=== PATIENT | female | born 1990 | race Caucasian/White ===

== ENCOUNTER 2016-06-29 13:58 | Inpatient (IN) | payer MEDICAID, OTHER ==
[~2016-06-29] VITALS: Ht 165.1 cm; Wt 125.5 kg
[~2016-06-29 13:58] MED LIST: HYDR-3498 PO; IBUP-1542 PO; NAPR-260 PO; PREN1TAB67 PO; PRO20 PO; URSO300C3 PO
--- NOTE | 2016-06-29 15:13 | ERA ---
ER Documentation Chief Complaint Date/Time DATE: 06/29/16 TIME: 15:13 Chief Complaint BROUGHT IN VIA EMS DUE TO C/O BACK PAIN AND UNABLE TO AMBULATE HPI The patient is a 26-year-old female, presenting to the ER because of back pain that began today why she tried to get up from sitting down. She denies similar symptoms previously, the pain is 10/10, worse with movement. He denies fever, chills, abdominal pain, fecal or urinary incontinence. She denies neck pain, chest pain, dyspnea, abdominal pain, vomiting, diarrhea, constipation. She does not smoke does not drink denies history of illicit IV drug abuse, has a lot of stress in her life at this time Past medical history: Anxiety Past surgical history: Appendectomy ROS All systems reviewed and are negative except as per history of present illness. Medications Home Meds Discontinued Reported Medications Ursodiol* (Ursodiol*) 300 Mg Capsule, 300 MG PO TID, CAP 12/07/13 Ursodiol* (Actigall*) 60 Mg/Ml(Cmpd) Susp, 60 MG PO 3X A DAY, ML 12/01/13 Nifedipine* (Procardia*) 20 Mg Cap, 20 MG PO Q 6H, CAP 12/01/13 Vits W-Ca,Fe,Fa(<1MG) ( Formula) 1 Each Tablet, 1 EACH PO DAILY 11/11/13 Discontinued Scripts Naproxen* (Naprosyn*) 500 Mg Tablet, 500 MG PO BID Y for PAIN AND/OR INFLAMMATION, #30 TAB Prov:STEVIE MCKEON PA-C 02/18/16 Hydrocodone Bit-Acetaminophen* ([place]*) 5-325 Mg Tab, 1 TAB PO Q6 Y for PAIN, # 7 TAB Prov:SCARLET [place] PA-C 01/29/15 Ibuprofen* (Motrin*) 600 Mg Tab, 600 MG PO Q6, #30 TAB Prov:SCARLET [place] PA-C 01/29/15 Allergies Allergies: Coded Allergies: Penicillins (Verified Allergy, Mild, 06/29/16) PMhx/Soc History of Surgery: No Anesthesia Reaction: No Hx Neurological Disorder: No Hx Respiratory Disorders: No Hx Cardiac Disorders: No Hx Psychiatric Problems: No Hx Miscellaneous Medical Probl: No Hx Alcohol Use: No Hx Substance Use: No Hx Tobacco Use: No Physical Exam Vitals Vital Signs Date Time Temp Pulse Resp B/P Pulse Ox O2 Delivery O2 Flow Rate FiO2 06/29/16 18:45 79 19 114/60 100 Room Air 06/29/16 17:55 75 18 102/62 99 Room Air 06/29/16 14:18 98.5 80 18 140/72 98 Physical Exam Const: No acute distress. Head: Atraumatic. Eyes: Normal Conjunctiva. ENT: Normal External Ears, Nose and Mouth. Neck: Full range of motion. No meningismus. Resp: Clear to auscultation bilaterally. Cardio: Regular rate and rhythm, no murmurs. Abd: Soft, obese, normal bowel sounds, non tender. Skin: No petechiae or rashes. Back: No midline or flank tenderness. Mild lumbar tenderness, no crepitus, CVA tenderness Ext: No cyanosis, or edema. Neur: Awake and alert. No focal deficit Psych: Normal Mood and Affect. Result Diagram: 06/29/16 1540 06/29/16 1540 Results 24 hrs Laboratory Tests Test 06/29/16 15:40 06/29/16 16:36 Alanine Aminotransferase (ALT/SGPT) 25IU/L Albumin 4.0g/dl Albumin/Globulin Ratio 0.95 Alkaline Phosphatase 94IU/L Anion Gap 14 Aspartate Amino Transf (AST/SGOT) 17IU/L Basophils # 0.010^3/ul Basophils % 0.5% Blood Urea Nitrogen 10mg/dl Calcium Level 9.0mg/dl Carbon Dioxide Level 29mmol/L Chloride Level 105mmol/L Creatinine 0.59mg/dl Direct Bilirubin 0.00mg/dl Eosinophils # 0.110^3/ul Eosinophils % 1.0% Globulin 4.20g/dl Glucose Level 89mg/dl Hematocrit 38.9% Hemoglobin 13.1g/dl Indirect Bilirubin 0.1mg/dl Lipase 137U/L Lymphocytes # 2.010^3/ul Lymphocytes % 26.8% Mean Corpuscular Hemoglobin 29.6pg Mean Corpuscular Hemoglobin Concent 33.6g/dl Mean Corpuscular Volume 87.9fl Mean Platelet Volume 8.4fl Monocytes # 0.410^3/ul Monocytes % 4.8% Neutrophils # 5.110^3/ul Neutrophils % 66.9% Nucleated Red Blood Cells # 0.010^3/ul Nucleated Red Blood Cells % 0.0/100WBC Platelet Count 39778^3/UL Potassium Level 3.8mmol/L Red Blood Count 4.4210^6/ul Red Cell Distribution Width 13.8% Serum HCG, Qualitative NEGATIVE Sodium Level 144mmol/L Total Bilirubin 0.1mg/dl Total Protein 8.2g/dl White Blood Count 7.610^3/ul Bedside Urine Blood Trace-intact Bedside Urine Glucose (UA) Negative Bedside Urine Ketones (LAB) Negative Bedside Urine Leukocyte Esterase (L Negative Bedside Urine Nitrite (LAB) Negative Bedside Urine Protein (LAB) Negative Bedside Urine pH (LAB) 7.0 Current Medications Medications (Trade) Dose Ordered Sig/Christopher Route PRN Reason Start Time Stop Time Status Last Admin Dose Admin Morphine Sulfate (morphine) 4 mg ONCE STAT IV 06/29/16 15:19 06/29/16 15:21 DC 06/29/16 15:40 Ondansetron HCl 4 mg 4 mg ONCE STAT IV 06/29/16 15:19 06/29/16 15:21 DC 06/29/16 15:40 Sodium Chloride (NS) 1,000 ml @ 1,000 mls/hr Q1H ONCE IV 06/29/16 15:30 06/29/16 16:29 DC 06/29/16 15:39 Ketorolac Tromethamine (Toradol) 30 mg ONCE STAT IV 06/29/16 16:57 06/29/16 16:59 DC 06/29/16 17:08 Procedures/[place] [id number] Radiology Main Line: [phone] DIAGNOSTIC IMAGING REPORT 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 CLINICAL INDICATION: Back pain TECHNIQUE: CT of the lumbar spine without contrast was performed on a multidetector CT scanner, with multiplanar reformats. One or more of the following dose reduction techniques were used: Automated exposure control, adjustment in mA and / or kV according to patient size, use of iterative reconstructive technique. CTDIvol = 39 mGy and DLP = 1176 mGy-cm. COMPARISON: None available. FINDINGS: No fracture or dislocation is identified. There is preservation of the lordosis of the lumbar spine. Alignment is intact. The vertebral bodies are maintained in height. Mild anterior spondylosis is seen at L4-5. Noted is an IUD in the uterus. T12-L1: The disc is maintained in height. No disk bulge or herniation is seen. There is no central canal stenosis or foraminal narrowing. L1-L2: The disc is maintained in height. No disk bulge or herniation is seen. There is no central canal stenosis or foraminal narrowing. L2-L3: The disc is maintained in height. No disk bulge or herniation is seen. There is mild facet arthropathy. There is no central canal stenosis or foraminal narrowing. L3-L4: The disc is maintained in height. No disk bulge or herniation is seen. There is mild facet arthropathy. There is no central canal stenosis or foraminal narrowing. L4-L5: There is mild disk space narrowing. There is posterior disk bulging and suggestion of a central disk protrusion measuring up to approximately 4 mm AP. There is mild facet arthropathy. There is mild to moderate central canal stenosis. There is no foraminal narrowing. L5-S1: The disc is maintained in height. There is posterior disk bulging and mild facet arthropathy. There is no central canal stenosis or foraminal narrowing. IMPRESSION: 1. No evidence of fracture or dislocation. 2. Mild lumbar spondylosis, more pronounced at L4-5. 3. At L4-5, mild to moderate central canal stenosis with suggestion of approximately 4 mm central disk protrusion. Follow-up could be performed with MRI. RPTAT: VV .Dvaid Navas MD, Date Time Electronically viewed and signed by .David Navas MD, on 06/29/2016 18:00 .O/ CC: TREVA ROMERO MD MEDICAL MAKING DECISION: The patient is a 26-year-old female, presenting with acute back pain due to acute L4-L5 disc protrusion. She was treated with morphine 4 mg IV, Toradol 30 mg IV for pain, Zofran 4 IV for nausea and 1 L normal saline for clinical dehydration with good response. The differential diagnoses considered include but are not limited to caudal equina syndrome, spinal abscess, DJD, diskitis, lumbar radiculopathy. Departure Diagnosis: Primary Impression: Protrusion of intervertebral disc of lumbosacral region Condition: Stable Comments The lumbar MRI is pending I discussed the findings with the patient. I discussed the patient with the on- call hospitalist Dr. Poe who was made aware of the lab, the treatment, the patient condition and the pending lumbar MRI. The patient is admitted to medical surgery bed The patient's blood pressure was elevated (>120/80) but appears stable without evidence of hypertension emergency or urgency. The patient was counseled about the risks of hypertension and urged to pursue outpatient monitoring and therapy within a week after discharge with their primary care physician. TREVA ROMERO MD Jun 29, 2016 15:13
[2016-06-29] MEDS ORDERED: morphine 4 MG/ML VIAL IV STA (15:19)
[2016-06-29] MEDS ORDERED: ONDANSETRON 4 MG INJ IV STA (15:19)
[2016-06-29] MEDS ORDERED: SOD CHLORIDE 0.9% 1,000 ML IV ONE (15:30)
[2016-06-29 16:02] LABS: BASOPHILS % 0.5 % (0.0-2.0); EOSINOPHILS # 0.1 10^3/ul (0.0-0.5); HEMATOCRIT 38.9 % (37.0-47.0); HEMOGLOBIN 13.1 g/dl (12.0-16.0); LYMPHOCYTES % 26.8 % (15.0-51.0); MEAN CORPUSCULAR HEMOGLOBIN 29.6 pg (29.0-33.0); MEAN CORPUSCULAR HGB CONC 33.6 g/dl (32.0-37.0); MEAN CORPUSCULAR VOLUME 87.9 fl (82.0-101.0); MEAN PLATELET VOLUME 8.4 fl (7.4-10.4); MONOCYTE # 0.4 10^3/ul (0.3-0.9); MONOCYTES % 4.8 % (0.0-11.0); NEUTROPHIL # 5.1 10^3/ul (1.6-7.5); NEUTROPHILS % 66.9 % (39.0-77.0); PLATELET COUNT 235 10^3/UL (140-440); RED BLOOD COUNT 4.42 10^6/ul (4.20-5.40); RED CELL DISTRIBUTION WIDTH 13.8 % (11.5-14.5); UNCORRECTED WBC 7.6 10^3/ul (4.8-10.8); WHITE BLOOD COUNT 7.6 10^3/ul (4.8-10.8)
[2016-06-29 16:12] LABS: CONDITION 1; POTASSIUM 3.8 mmol/L (3.5-5.1)
[2016-06-29 16:14] LABS: CREATININE 0.59 mg/dl (0.44-1.00)
[2016-06-29 16:15] LABS: ALBUMIN/GLOBULIN RATIO 0.95; BILIRUBIN,INDIRECT 0.1 mg/dl (0-1.1); BILIRUBIN,TOTAL 0.1 mg/dl (0.2-1.3); TOTAL PROTEIN 8.2 g/dl (6.1-8.1)
[2016-06-29 16:36] LABS: URINE BLOOD (Dip) POC Trace-intact (NEGATIVE)
[2016-06-29] MEDS ORDERED: KETOROLAC 30 MG INJ IV STA ×2 (16:57→20:38)
--- NOTE | 2016-06-29 18:00 | RADRPT ---
PROCEDURE: CT lumbar spine without contrast. CLINICAL INDICATION: Back pain TECHNIQUE: CT of the lumbar spine without contrast was performed on a multidetector CT scanner, wi th multiplanar reformats. One or more of the following dose reduction techniques were used: Automat ed exposure control, adjustment in mA and / or kV according to patient size, use of iterative recons tructive technique. CTDIvol = 39 mGy and DLP = 1176 mGy-cm. COMPARISON: None available. FINDINGS: No fracture or dislocation is identified. There is preservation of the lordosis of the lumbar spine . Alignment is intact. The vertebral bodies are maintained in height. Mild anterior spondylosis i s seen at L4-5. Noted is an IUD in the uterus. T12-L1: The disc is maintained in height. No disk bulge or herniation is seen. There is no central canal stenosis or foraminal narrowing. L1-L2: The disc is maintained in height. No disk bulge or herniation is seen. There is no central canal stenosis or foraminal narrowing. L2-L3: The disc is maintained in height. No disk bulge or herniation is seen. There is mild facet arthropathy. There is no central canal stenosis or foraminal narrowing. L3-L4: The disc is maintained in height. No disk bulge or herniation is seen. There is mild facet arthropathy. There is no central canal stenosis or foraminal narrowing. L4-L5: There is mild disk space narrowing. There is posterior disk bulging and suggestion of a cent ral disk protrusion measuring up to approximately 4 mm AP. There is mild facet arthropathy. There is mild to moderate central canal stenosis. There is no foraminal narrowing. L5-S1: The disc is maintained in height. There is posterior disk bulging and mild facet arthropathy . There is no central canal stenosis or foraminal narrowing. IMPRESSION: 1. No evidence of fracture or dislocation. 2. Mild lumbar spondylosis, more pronounced at L4-5. 3. At L4-5, mild to moderate central canal stenosis with suggestion of approximately 4 mm central d isk protrusion. Follow-up could be performed with MRI. RPTAT: VV .David Navas MD, MD Date Time Electronically viewed and signed by .David Navas MD, on 06/29/2016 18:00 .O/
[2016-06-29] MEDS ORDERED: DOCUSATE SODIUM 100 MG CAP PO PRN (20:30)
[2016-06-29] MEDS ORDERED: HYDROCODONE/APAP (5/325) TAB PO PRN (20:30)
[2016-06-29] MEDS ORDERED: NACL 0.9% 3 ML SYG IV SCH (20:30)
--- NOTE | 2016-06-29 20:51 | HP ---
Date/Time of Note Date/Time of Note DATE: 06/29/16 TIME: 20:43 Assessment/Plan VTE Prophylaxis VTE Prophylaxis Intervention: SCD's Assessment/Plan Assessment/Plan 26 yo female with no significant past medical history who complains of intractable back pain. 1. Lumbar strain/radiculopathy - will admit the patient to med/surg, fall precautions, obtain MRI lumbar spine, if + canal stenosis and continues with symptoms - consult neurosurg/ortho, IV pain meds, steroids, PT eval 2. GI ppx - none 3. DVT ppx - heparin answered all of her questions. as per clinical course. this history and physical took greater then 45 minutes to complete HPI/ROS Admit Date/Time Admit Date/Time 06/29/2016, 8:43 pm Hx of Present Illness 26 yo female with no significant past medical history who complains of intractable back pain. 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 She couldn't not stand after that. Upon further questioning, patient states that she sustained a fall, by slipping on water, one foot went forward, the other remained stationary, 2 weeks prior. Since then, she has had intermittent back pain, radiating bilaterally to her legs, shooting, 10/10 in intensity, worse with movement, with no alleviating factors. Denies any chest pain, shortness of breath, trauma, nausea/vomiting/diarrhea/constipation, loss of consciousness, fevers/chills, or other constitutional symptoms. ED course: toradol, CT lumbar spine - see procedures ROS 14 point review of systems completed, please refer to HPI for any positive findings PMH/Family/Social Past Medical History Medical History: no pertinent history Past Surgical History Past Surgical Hx: appendectomy Family History Significant Family History: diabetes (mother), hypertension (father), other ( bipolar disorder) Social History Alcohol Use: none Smoking Status: Never smoker Drug Use: none Exam/Review of Systems Vital Signs Vitals Vital Signs Date Time Temp Pulse Resp B/P Pulse Ox O2 Delivery O2 Flow Rate FiO2 06/29/16 20:30 114 13 114/68 100 Room Air 06/29/16 14:18 98.5 Exam Exam Gen Shayna: ,moderate distress 2/2 back pain, AAOx4, obese female HEENT: NC/AT, PERRLA, EOMI, no pharyngeal erythema, no tonsillar exudates, no lymphadenopathy, no JVD, no carotid bruits NECK: supple, no thyromegaly THORAX: symmetrical, no obvious deformities CV: S1S2, RRR, no M/G/R Lungs: CTAB no W/C/R/R Abd: soft, NT/ND, +BS, no rebound, no guarding, neg HSM EXT: no edema, no ecchymosis, no clubbing, + straight leg test bilaterally 45 degrees Neuro: CN II-XII grossly intact, no focal deficits Psych: good mentation, alert and oriented, good mood and affect Skin: C/D/I Labs Result Diagram: 06/29/16 1540 06/29/16 1540 Medications Medications Current Medications Acetaminophen (Tylenol Tab) 650 mg Q6H PRN PO PAIN LEVEL 1-3 OR FEVER; Start at 20:30 Acetaminophen/ Hydrocodone Bitart ([place] (5/325)) 1 tab Q6H PRN PO MODERATE PAIN LEVEL 4-6; Start 06/29/16 at 20:30 Morphine Sulfate (morphine) 2 mg Q4H PRN IV SEVERE PAIN LEVEL 7-10; Start 06/29 at 20:30 Docusate Sodium (Colace) 100 mg Q12H PRN PO CONSTIPATION; Start 06/29/16 at 20: 30 Enoxaparin Sodium (Lovenox) 40 mg DAILY SC ; Start 06/30/16 at 09:00 Methylprednisolone Sodium Succinate (Solu-Medrol) 60 mg Q8 IV ; Start 06/29/16 at 22:[address] lumbar spine IMPRESSION: 1. No evidence of fracture or dislocation. 2. Mild lumbar spondylosis, more pronounced at L4-5. 3. At L4-5, mild to moderate central canal stenosis with suggestion of approximately 4 mm central disk protrusion. Follow-up could be performed with MRI. FADIA ENRIQUEZ MD Jun 29, 2016 20:51
[2016-06-29 21:50] VITALS: Ht 165.1 cm; Wt 125.5 kg
[2016-06-29 21:55] VITALS: BP 118/60; RESP 18
[2016-06-29] MEDS: METHYLPREDNISOLONE 125 MG INJ IV SCH (23:46)
[2016-06-30] MEDS: METHYLPREDNISOLONE 125 MG INJ IV SCH ×3 (05:36→22:20)
[2016-06-30 06:23] LABS: POTASSIUM 4.1 mmol/L (3.5-5.1)
[2016-06-30 06:25] LABS: CREATININE 0.57 mg/dl (0.44-1.00)
[2016-06-30 06:26] LABS: CALCIUM 9.2 mg/dl (8.4-10.2)
[2016-06-30 06:42] LABS: HEMATOCRIT 39.4 % (37.0-47.0); HEMOGLOBIN 13.5 g/dl (12.0-16.0); LYMPHOCYTES % 13.3 % (15.0-51.0); MEAN CORPUSCULAR HEMOGLOBIN 30.1 pg (29.0-33.0); MEAN CORPUSCULAR HGB CONC 34.2 g/dl (32.0-37.0); MEAN CORPUSCULAR VOLUME 88.2 fl (82.0-101.0); MEAN PLATELET VOLUME 8.8 fl (7.4-10.4); MONOCYTES % 0.5 % (0.0-11.0); NEUTROPHIL # 6.4 10^3/ul (1.6-7.5); NEUTROPHILS % 86.2 % (39.0-77.0); PLATELET COUNT 233 10^3/UL (140-440); RED BLOOD COUNT 4.47 10^6/ul (4.20-5.40); RED CELL DISTRIBUTION WIDTH 13.6 % (11.5-14.5); UNCORRECTED WBC 7.4 10^3/ul (4.8-10.8); WHITE BLOOD COUNT 7.4 10^3/ul (4.8-10.8)
[2016-06-30 07:08] LABS: CONDITION 1
[2016-06-30 08:08] VITALS: BP 121/58; RESP 18
[2016-06-30] MEDS: ENOXAPARIN 40 MG/0.4 ML SYG SC SCH (08:36)
[2016-06-30 13:30] VITALS: BP 115/61; PULSE 90; RESP 16
[2016-06-30] MEDS: morphine 2 MG INJ IV PRN (14:10)
--- NOTE | 2016-06-30 15:10 | PN ---
Date/Time of Note Date/Time of Note DATE: 06/30/16 TIME: 15:06 Assessment/Plan VTE Prophylaxis VTE Prophylaxis Intervention: heparin Lines/Catheters IV Catheter Type (from Nrs): [facility] Lock Urinary Cath still in place: No Assessment/Plan Assessment/Plan 1. Lumbar strain/radiculopathy, patient has IUD unable to have MRI, consult neurosurgurgeon Dr. Kelley follow up with PT eval 2. GI ppx - none 3. DVT ppx - heparin Subjective 24 Hr Interval Summary Free Text/Dictation low back pain with pain and weakness on right lower extremity, no incontinence Exam/Review of Systems Vital Signs Vitals Vital Signs Date Time Temp Pulse Resp B/P Pulse Ox O2 Delivery O2 Flow Rate FiO2 06/30/16 13:30 90 16 115/61 95 Room Air 06/30/16 08:08 98.7 Intake and Output 06/29/16 06/29/16 06/30/16 15:00 23:00 07:00 Intake Total 360 ml Output Total 400 ml Balance -40 ml Exam Constitutional: alert, oriented, well developed Psych: nl mood/affect, no complaints Head: atraumatic, normocephalic Eyes: EOMI, PERRL, nl conjunctiva, nl lids, nl sclera ENMT: mucosa pink and moist, nl external ears & nose, nl lips & teeth, nl nasal mucosa & septum Neck: non-tender, supple Respiratory: clear to auscultation, normal air movement, No congested cough, No crackles/rales, No diminished breath sounds, No intercostal retraction, No labored breathing, No respirations, No tactile fremitus, No wheezing Cardiovascular: nl pulses, regular rate and rhythm, No S3, No S4, No bruits, No diastolic murmur, No edema, No gallop, No irregular rhythm, No jugular venous distention (JVD), No murmurs/extra sounds, No rub, No systolic murmur Gastrointestinal: nl liver, spleen, non-tender, soft, No ascites, No bowel sounds, No distended, No firm, No hepatomegaly, No mass , No rebound or guarding, No splenomegaly, No surgical scars, No tender Musculoskeletal: nl extremities to inspection Extremities: normal pulses, No calf tenderness, No clubbing, No cyanosis, No edema, No palpable cord, No pitting pedal edema, No tenderness Neurological: REIMBURSEMENT REP II-XII intact, nl mental status, nl speech, other (pain and weakness on right lower extremity) Skin: nl turgor, rash or lesions Lymph: nl lymph nodes Results Result Diagram: 06/30/16 0500 06/30/16 0500 Results 24 hrs Laboratory Tests Test 06/29/16 15:40 06/29/16 16:36 06/30/16 05:00 Alanine Aminotransferase (ALT/SGPT) 25 Albumin 4.0 Albumin/Globulin Ratio 0.95 Alkaline Phosphatase 94 Anion Gap 14 17 H Aspartate Amino Transf (AST/SGOT) 17 Basophils # 0.0 0.0 Basophils % 0.5 0.0 Blood Urea Nitrogen 10 11 Calcium Level 9.0 9.2 Carbon Dioxide Level 29 23 Chloride Level 105 109 Creatinine 0.59 0.57 Direct Bilirubin 0.00 Eosinophils # 0.1 0.0 Eosinophils % 1.0 0.0 Globulin 4.20 H Glucose Level 89 147 # Hematocrit 38.9 39.4 Hemoglobin 13.1 13.5 Indirect Bilirubin 0.1 Lipase 137 Lymphocytes # 2.0 1.0 Lymphocytes % 26.8 13.3 L Mean Corpuscular Hemoglobin 29.6 30.1 Mean Corpuscular Hemoglobin Concent 33.6 34.2 Mean Corpuscular Volume 87.9 88.2 Mean Platelet Volume 8.4 8.8 Monocytes # 0.4 0.0 L Monocytes % 4.8 0.5 Neutrophils # 5.1 6.4 Neutrophils % 66.9 86.2 H Nucleated Red Blood Cells # 0.0 0.0 Nucleated Red Blood Cells % 0.0 0.0 Platelet Count 235 233 Potassium Level 3.8 4.1 Red Blood Count 4.42 4.47 Red Cell Distribution Width 13.8 13.6 Serum HCG, Qualitative NEGATIVE Sodium Level 144 145 H Total Bilirubin 0.1 L Total Protein 8.2 H White Blood Count 7.6 7.4 Bedside Urine Blood Trace-intact H Bedside Urine Glucose (UA) Negative Bedside Urine Ketones (LAB) Negative Bedside Urine Leukocyte Esterase (L Negative Bedside Urine Nitrite (LAB) Negative Bedside Urine Protein (LAB) Negative Bedside Urine pH (LAB) 7.0 Medications Medications Current Medications Acetaminophen (Tylenol Tab) 650 mg Q6H PRN PO PAIN LEVEL 1-3 OR FEVER; Start at 20:30 Acetaminophen/ Hydrocodone Bitart ([place] (5/325)) 1 tab Q6H PRN PO MODERATE PAIN LEVEL 4-6; Start 06/29/16 at 20:30 Morphine Sulfate (morphine) 2 mg Q4H PRN IV SEVERE PAIN LEVEL 7-10 Last administered on 06/30/16 14:10; Admin Dose 2 MG; Start 06/29/16 at 20:30 Docusate Sodium (Colace) 100 mg Q12H PRN PO CONSTIPATION; Start 06/29/16 at 20: 30 Enoxaparin Sodium (Lovenox) 40 mg DAILY SC Last administered on 06/30/16 08:36 ; Admin Dose 40 MG; Start 06/30/16 at 09:00 Methylprednisolone Sodium Succinate (Solu-Medrol) 60 mg Q8 IV Last administered on 06/30/16 14:37; Admin Dose 60 MG; Start 06/29/16 at 22:00 RADHA YANEZ MD Jun 30, 2016 15:10
[2016-06-30 20:35] VITALS: BP 123/65; RESP 20
[2016-07-01] MEDS: METHYLPREDNISOLONE 125 MG INJ IV SCH ×3 (05:22→20:46)
[2016-07-01 07:57] VITALS: BP 111/55; RESP 18
[2016-07-01] MEDS: ENOXAPARIN 40 MG/0.4 ML SYG SC SCH (08:12)
--- NOTE | 2016-07-01 16:51 | RADRPT ---
PROCEDURE: CT pelvis CLINICAL INDICATION: Right buttock pain TECHNIQUE: Noncontrast multiplanar CT images of the pelvis with axial images obtained from the pel sandra inlet to the perineum. Coronal and sagittal reformatted images were obtained from the axial kvng rce images. The total exam CTDI equals 35.79 mGy and the total exam DLP equals 965.81 mGy-cm. One o r more of the following dose reduction techniques were utilized: Automated exposure control, adjust ment of the mA and/or kV according to patient size, use of iterative reconstruction technique. COMPARISON: CT lumbar spine 06/29/2016. FINDINGS: The sacrum and pelvis are unremarkable. In the course of the sacral nerves and sciatic nerve is are unremarkable. No presacral or posterior pelvic mass. The intrapelvic contents are unremarkable. Incidental note is made of an IUD within the endometrial canal. The hips, proximal femurs and parapelvic soft tissues are normal in appearance. The exiting sacral nerves are normal appearance. Review of the CT of the lumbar spine from 06/29/2016 demonstrates a c entral to right central/subarticular disk protrusion at L4-L5 likely impinging upon the L5 nerve ricardo t. This may be the source of pain. MRI may be considered for further evaluation. IMPRESSION: 1. No sacral or pelvic mass, soft tissue abnormality or sacral nerve impingement. 2. Disk protrusion in the central to right central/subarticular region at L4-L5 noted on the previo us CT lumbar spine likely impinges upon the descending L5 nerve root and may account for radicular p ain. Clinical correlation is recommended. MRI of the lumbar spine may be considered for further ev aluation. RPTAT:AAJJ Physician Rubin Date Time Electronically viewed and signed by Physician Rubin on 07/01/2016 16:51 CHIO/
--- NOTE | 2016-07-01 17:26 | PN ---
Date/Time of Note Date/Time of Note DATE: 07/01/16 TIME: 17:14 Assessment/Plan VTE Prophylaxis VTE Prophylaxis Intervention: SCD's Lines/Catheters IV Catheter Type (from Nrsg): Saline Lock Urinary Cath still in place: No Assessment/Plan Assessment/Plan 26 yo F with Intractable Pain in R buttock of sudden onset L4-L5 canal stenosis and central protrusion on CT * may or may not be causing #[address] PLAN: Pelvic CT to r/o hip pathology Lumbar MRI to eval L4/L5 stenosis ?trigger point injection / will consult ortho Spoke with renu Ibarra to do MRI with IUD Continue PT / pain control / supportive care Subjective 24 Hr Interval Summary Free Text/Dictation Patient seen and examined. still c/o Pain R buttock MRI still pending, spoke with radiology, spoke with fire sprinkler service technician Occasional hip numbness No loss of bowel or bladder function Patient can ambulate but that is also associated with pain in the back Exam/Review of Systems Vital Signs Vitals Vital Signs Date Time Temp Pulse Resp B/P Pulse Ox O2 Delivery O2 Flow Rate FiO2 07/01/16 07:57 97.7 55 18 111/55 96 06/30/16 13:30 Room Air Intake and Output 06/30/16 06/30/16 07/01/16 14:59 22:59 06:59 Intake Total 600 ml 500 ml Output Total 650 ml 250 ml Balance -50 ml 250 ml Exam Constitutional: alert, obese, oriented Psych: nl mood/affect Head: atraumatic, normocephalic Eyes: PERRL ENMT: mucosa pink and moist Neck: supple Respiratory: clear to auscultation Cardiovascular: nl pulses, regular rate and rhythm Gastrointestinal: non-tender, soft Musculoskeletal: other (Patient has point tenderness on the right side in the middle of her buttock ) Neurological: nl mental status, nl speech, No focal weakness Results Result Diagram: 06/30/16 0500 06/30/16 0500 Medications Medications Current Medications Acetaminophen (Tylenol Tab) 650 mg Q6H PRN PO PAIN LEVEL 1-3 OR FEVER; Start at 20:30 Acetaminophen/ Hydrocodone Bitart ([place] (5/325)) 1 tab Q6H PRN PO MODERATE PAIN LEVEL 4-6; Start 06/29/16 at 20:30 Morphine Sulfate (morphine) 2 mg Q4H PRN IV SEVERE PAIN LEVEL 7-10 Last administered on 06/30/16 14:10; Admin Dose 2 MG; Start 06/29/16 at 20:30 Enoxaparin Sodium (Lovenox) 40 mg DAILY SC Last administered on 07/01/16 08:12 ; Admin Dose 40 MG; Start 06/30/16 at 09:00 Methylprednisolone Sodium Succinate (Solu-Medrol) 60 mg Q8 IV Last administered on 07/01/16 13:03; Admin Dose 60 MG; Start 06/29/16 at 22:00 Docusate Sodium (Colace) 100 mg Q12H PO ; Start 07/01/16 at 20:30; Status UNV Procedures Procedures PROCEDURE: CT lumbar spine without contrast. CLINICAL INDICATION: Back pain TECHNIQUE: CT of the lumbar spine without contrast was performed on a multidetector CT scanner, with multiplanar reformats. One or more of the following dose reduction techniques were used: Automated exposure control, adjustment in mA and / or kV according to patient size, use of iterative reconstructive technique. CTDIvol = 39 mGy and DLP = 1176 mGy-cm. COMPARISON: None available. FINDINGS: No fracture or dislocation is identified. There is preservation of the lordosis of the lumbar spine. Alignment is intact. The vertebral bodies are maintained in height. Mild anterior spondylosis is seen at L4-5. Noted is an IUD in the uterus. T12-L1: The disc is maintained in height. No disk bulge or herniation is seen. There is no central canal stenosis or foraminal narrowing. L1-L2: The disc is maintained in height. No disk bulge or herniation is seen. There is no central canal stenosis or foraminal narrowing. L2-L3: The disc is maintained in height. No disk bulge or herniation is seen. There is mild facet arthropathy. There is no central canal stenosis or foraminal narrowing. L3-L4: The disc is maintained in height. No disk bulge or herniation is seen. There is mild facet arthropathy. There is no central canal stenosis or foraminal narrowing. L4-L5: There is mild disk space narrowing. There is posterior disk bulging and suggestion of a central disk protrusion measuring up to approximately 4 mm AP. There is mild facet arthropathy. There is mild to moderate central canal stenosis. There is no foraminal narrowing. L5-S1: The disc is maintained in height. There is posterior disk bulging and mild facet arthropathy. There is no central canal stenosis or foraminal narrowing. IMPRESSION: 1. No evidence of fracture or dislocation. 2. Mild lumbar spondylosis, more pronounced at L4-5. 3. At L4-5, mild to moderate central canal stenosis with suggestion of approximately 4 mm central disk protrusion. Follow-up could be performed with MRI. RPTAT: VV .David Navas MD, MD Date Time Electronically viewed and signed by .David Navas MD, MD on 06/29/2016 18:00 SHIMON MUNGUIA Jul 01, 2016 17:26
--- NOTE | 2016-07-01 18:00 | CONS ---
Date/Time of Note Date/Time of Note DATE: 07/01/16 TIME: 17:54 Assessment/Plan Assessment/Plan Additional Assessment/Plan impression Acute onset LBP with RLE upon standing CT Lspine showed possible L5-S1 disc herniation but very difficult to see on CT MRI lspine pending Plan MRI Lspine - pending Finalize recs once study completed. Thank you Consultation Date/Type/Reason Admit Date/Time 06/29/2016, 8:43 pm Type of Consultation: LBP with RLE radic Hx of Present Illness 26 y/o female presents with acute onset LBP with RLE radic pain. Pain worse with standing and pt has difficulty standing and ambulating. CT Lspine showed likely L5-S1 herniated disc but very difficult to see. MRI pending. pmh/psx: per hpi/chart meds: see med recon ros: per hpi/chart Psychological: nl mood/affect Past Medical History Medical History: no pertinent history Past Surgical History Past Surgical Hx: appendectomy Social History Alcohol Use: none Smoking Status: Never smoker Drug Use: none Exam/Review of Systems Vital Signs Vitals Vital Signs Date Time Temp Pulse Resp B/P Pulse Ox O2 Delivery O2 Flow Rate FiO2 07/01/16 07:57 97.7 55 18 111/55 96 06/30/16 13:30 Room Air Intake and Output 06/30/16 06/30/16 07/01/16 15:00 23:00 07:00 Intake Total 600 ml 500 ml Output Total 650 ml 250 ml Balance -50 ml 250 ml Exam Constitutional: alert Psych: no complaints Head: normocephalic Neck: supple Respiratory: clear to auscultation Cardiovascular: regular rate and rhythm Neurological: other (MS: AAOX4 CN: III-XII M: 5/5 strength bilat UE/LLE , 5-/5 RLE 4+/5 Right DF . ) Results Result Diagram: 06/30/16 0500 06/30/16 0500 Medications Medications Current Medications Acetaminophen (Tylenol Tab) 650 mg Q6H PRN PO PAIN LEVEL 1-3 OR FEVER; Start at 20:30 Acetaminophen/ Hydrocodone Bitart ([place] (5/325)) 1 tab Q6H PRN PO MODERATE PAIN LEVEL 4-6; Start 06/29/16 at 20:30 Morphine Sulfate (morphine) 2 mg Q4H PRN IV SEVERE PAIN LEVEL 7-10 Last administered on 06/30/16 14:10; Admin Dose 2 MG; Start 06/29/16 at 20:30 Enoxaparin Sodium (Lovenox) 40 mg DAILY SC Last administered on 07/01/16 08:12 ; Admin Dose 40 MG; Start 06/30/16 at 09:00 Methylprednisolone Sodium Succinate (Solu-Medrol) 60 mg Q8 IV Last administered on 07/01/16 13:03; Admin Dose 60 MG; Start 06/29/16 at 22:00 Docusate Sodium (Colace) 100 mg Q12H PO ; Start 07/01/16 at 21:00 SOCORRO DELATORRE NP Jul 01, 2016 18:00
[2016-07-01 20:20] VITALS: BP 133/74; RESP 18
[2016-07-01] MEDS: DOCUSATE SODIUM 100 MG CAP PO SCH (20:46)
[2016-07-01] MEDS: morphine 2 MG INJ IV PRN (23:05)
--- NOTE | 2016-07-01 23:22 | RADRPT ---
PROCEDURE: MRI lumbar spine CLINICAL INDICATION: Back pain. Disk protrusion. TECHNIQUE: An MRI of the lumbar spine was performed on a 1.5 kanu scanner utilizing the following sequences: Sagittal and axial T1 weighted, sagittal and dual echo axial T2 weighted, and sagittal T 2 weighted with fat saturation. COMPARISON: None. FINDINGS: Mild straightening of the lumbar spine. No vertebral body subluxation is evident. The vertebral bodi es are normal in height and signal intensity. The conus medullaris is visible at the L1 level, and is normal in appearance. T12 - L1: The disk is normal in appearance. The central canal and foramina are adequately patent. L1 - L2: The disk is normal in appearance. The central canal and foramina are adequately patent. L2 - L3: The disk is normal in appearance. The central canal and foramina are adequately patent. L3 - L4: The disk is normal in appearance. The central canal and foramina are adequately patent. L4 - L5: Mild disk desiccation loss of disk height. Broad-based central disk protrusion measuring 12 x 3 mm in transverse and AP dimensions respectively. Mild facet joint arthropathy with small fac et joint effusions. The central canal and foramina are adequately patent. L5 - S1: Disk desiccation and preservation of disk height with a central vertical annular fissure a nd focal central disk bulge. No disk protrusion. The central canal and foramina are adequately pa tent. IMPRESSION: 1. Disk desiccation and loss of disk height at L4-L5 with small central disk protrusion measuring 12 x 3 mm in size without central canal or foraminal stenosis. 2. This desiccation without significant loss of disk height and L5-S1. Small central cortical rasta lar fissure and central disk bulging. No central canal or foraminal stenosis. 3. Mild facet joint arthropathy L4-L5 L5-S1. RPTAT: [facility] Physician Rubin Date Time Electronically viewed and signed by Physician Rubin on 07/01/2016 23:22 CHIO/
[2016-07-02] MEDS: METHYLPREDNISOLONE 125 MG INJ IV SCH ×2 (05:36→13:37)
[2016-07-02 07:45] VITALS: BP 115/56; RESP 16
[2016-07-02] MEDS: ACETAMINOPHEN 325 MG TAB PO PRN ×2 (07:54→17:33)
[2016-07-02] MEDS: DOCUSATE SODIUM 100 MG CAP PO SCH (08:26)
[2016-07-02] MEDS: ENOXAPARIN 40 MG/0.4 ML SYG SC SCH (08:29)
--- NOTE | 2016-07-02 12:35 | PN ---
Date/Time of Note Date/Time of Note DATE: 07/02/16 TIME: 12:16 Assessment/Plan VTE Prophylaxis VTE Prophylaxis Intervention: SCD's Lines/Catheters IV Catheter Type (from Nrsg): Saline Lock Urinary Cath still in place: No Assessment/Plan Assessment/Plan Assessment/Plan 26 yo F with Intractable Pain in R buttock of sudden onset: likely NOE in origin L4-L5 canal stenosis and central protrusion on CT * may or may not be causing #[address] PLAN: ?trigger point injection pending with Dr PEREZ F/u Neurosurgical recs Continue PT / pain control / supportive care Subjective 24 Hr Interval Summary Free Text/Dictation Patient seen and examined. Exam/Review of Systems Vital Signs Vitals Vital Signs Date Time Temp Pulse Resp B/P Pulse Ox O2 Delivery O2 Flow Rate FiO2 07/02/16 07:45 98.5 68 16 115/56 93 06/30/16 13:30 Room Air Intake and Output 07/01/16 07/01/16 07/02/16 15:00 23:00 07:00 Intake Total 1560 ml 1100 ml Output Total 900 ml Balance 1560 ml 200 ml Exam Constitutional: alert, obese, oriented Psych: nl mood/affect Head: atraumatic, normocephalic Eyes: PERRL ENMT: mucosa pink and moist Neck: supple Respiratory: clear to auscultation Cardiovascular: nl pulses, regular rate and rhythm Gastrointestinal: non-tender, soft Musculoskeletal: other (Patient has point tenderness on the right side in the middle of her buttock ) Neurological: nl mental status, nl speech, No focal weakness Results Result Diagram: 06/30/16 0500 06/30/16 0500 Medications Medications Current Medications Acetaminophen (Tylenol Tab) 650 mg Q6H PRN PO PAIN LEVEL 1-3 OR FEVER Last administered on 07/02/16 07:54; Admin Dose 650 MG; Start 06/29/16 at 20:30 Acetaminophen/ Hydrocodone Bitart ([place] (5/325)) 1 tab Q6H PRN PO MODERATE PAIN LEVEL 4-6; Start 06/29/16 at 20:30 Morphine Sulfate (morphine) 2 mg Q4H PRN IV SEVERE PAIN LEVEL 7-10 Last administered on 07/01/16 23:05; Admin Dose 2 MG; Start 06/29/16 at 20:30 Enoxaparin Sodium (Lovenox) 40 mg DAILY SC Last administered on 07/02/16 08:29 ; Admin Dose 40 MG; Start 06/30/16 at 09:00 Methylprednisolone Sodium Succinate (Solu-Medrol) 60 mg Q8 IV Last administered on 07/02/16 05:36; Admin Dose 60 MG; Start 06/29/16 at 22:00 Docusate Sodium (Colace) 100 mg Q12H PO Last administered on 07/02/16 08:26; Admin Dose 100 MG; Start 07/01/16 at 21:00 Procedures Procedures PROCEDURE: MRI lumbar spine CLINICAL INDICATION: Back pain. Disk protrusion. TECHNIQUE: An MRI of the lumbar spine was performed on a 1.5 kanu scanner utilizing the following sequences: Sagittal and axial T1 weighted, sagittal and dual echo axial T2 weighted, and sagittal T2 weighted with fat saturation. COMPARISON: None. FINDINGS: Mild straightening of the lumbar spine. No vertebral body subluxation is evident. The vertebral bodies are normal in height and signal intensity. The conus medullaris is visible at the L1 level, and is normal in appearance. T12 - L1: The disk is normal in appearance. The central canal and foramina are adequately patent. L1 - L2: The disk is normal in appearance. The central canal and foramina are adequately patent. L2 - L3: The disk is normal in appearance. The central canal and foramina are adequately patent. L3 - L4: The disk is normal in appearance. The central canal and foramina are adequately patent. L4 - L5: Mild disk desiccation loss of disk height. Broad-based central disk protrusion measuring 12 x 3 mm in transverse and AP dimensions respectively. Mild facet joint arthropathy with small facet joint effusions. The central canal and foramina are adequately patent. L5 - S1: Disk desiccation and preservation of disk height with a central vertical annular fissure and focal central disk bulge. No disk protrusion. The central canal and foramina are adequately patent. IMPRESSION: 1. Disk desiccation and loss of disk height at L4-L5 with small central disk protrusion measuring 12 x 3 mm in size without central canal or foraminal stenosis. 2. This desiccation without significant loss of disk height and L5-S1. Small central cortical annular fissure and central disk bulging. No central canal or foraminal stenosis. 3. Mild facet joint arthropathy L4-L5 L5-S1. RPTAT: [facility] Tennille Aranda Physician Date Time Electronically viewed and signed by Tennille Aranda Physician on 07/01/2016 23:22 SHIMON MUNGUIA Jul 02, 2016 12:34
--- NOTE | 2016-07-02 13:00 | CONS ---
Date/Time of Note Date/Time of Note DATE: 07/02/16 TIME: 12:59 Assessment/Plan Assessment/Plan Chief Complaint/Hosp Course 26 y/o female presents with acute onset LBP with RLE radic pain. Pain worse with standing and pt has difficulty standing and ambulating. CT Lspine showed likely L5-S1 herniated disc but very difficult to see. MRI pending. pmh/psx: per hpi/chart meds: see med recon ros: per hpi/chart Problems: Additional Assessment/Plan impression Mechanical LBP with RLE radic pain MRI Lspine reviewed and noted. Images and report discussed with pt in detail Plan Candidate for TLIF L4-S1 with possible anterior approach. [facility] does have proper equipment to perform surgery here and pt will need to be transferred to [facility] for tertiary spine care. Pt is agreeable to transfer. CM to arrange transfer with [facility] bed reservation. Consultation Date/Type/Reason Admit Date/Time Jun 29, 2016 at 19:41 Initial Consult Date Type of Consultation: LBP with RLE radic Exam/Review of Systems Vital Signs Vitals Vital Signs Date Time Temp Pulse Resp B/P Pulse Ox O2 Delivery O2 Flow Rate FiO2 07/02/16 07:45 98.5 68 16 115/56 93 06/30/16 13:30 Room Air Intake and Output 07/01/16 07/01/16 07/02/16 15:00 23:00 07:00 Intake Total 1560 ml 1100 ml Output Total 900 ml Balance 1560 ml 200 ml Exam S: NAD Neurological: other (MS: AAOX4 CN: PERRL M: FC x 4 , 5/5 strength to bilat ue/LLE, 4+/5 Right DF ) Results Result Diagram: 06/30/16 0500 06/30/16 0500 Medications Medications Current Medications Acetaminophen (Tylenol Tab) 650 mg Q6H PRN PO PAIN LEVEL 1-3 OR FEVER Last administered on 07/02/16 07:54; Admin Dose 650 MG; Start 06/29/16 at 20:30 Acetaminophen/ Hydrocodone Bitart ([place] (5/325)) 1 tab Q6H PRN PO MODERATE PAIN LEVEL 4-6; Start 06/29/16 at 20:30 Morphine Sulfate (morphine) 2 mg Q4H PRN IV SEVERE PAIN LEVEL 7-10 Last administered on 07/01/16 23:05; Admin Dose 2 MG; Start 06/29/16 at 20:30 Enoxaparin Sodium (Lovenox) 40 mg DAILY SC Last administered on 07/02/16 08:29 ; Admin Dose 40 MG; Start 06/30/16 at 09:00 Methylprednisolone Sodium Succinate (Solu-Medrol) 60 mg Q8 IV Last administered on 07/02/16 05:36; Admin Dose 60 MG; Start 06/29/16 at 22:00 Docusate Sodium (Colace) 100 mg Q12H PO Last administered on 07/02/16 08:26; Admin Dose 100 MG; Start 07/01/16 at 21:00 Ibuprofen (Motrin) 400 mg Q6 PO ; Start 07/02/16 at 13:00 Procedures Procedures [place] [id number] Radiology Main Line: [phone] DIAGNOSTIC IMAGING REPORT 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 Disk protrusion. TECHNIQUE: An MRI of the lumbar spine was performed on a 1.5 kanu scanner utilizing the following sequences: Sagittal and axial T1 weighted, sagittal and dual echo axial T2 weighted, and sagittal T2 weighted with fat saturation. COMPARISON: None. FINDINGS: Mild straightening of the lumbar spine. No vertebral body subluxation is evident. The vertebral bodies are normal in height and signal intensity. The conus medullaris is visible at the L1 level, and is normal in appearance. T12 - L1: The disk is normal in appearance. The central canal and foramina are adequately patent. L1 - L2: The disk is normal in appearance. The central canal and foramina are adequately patent. L2 - L3: The disk is normal in appearance. The central canal and foramina are adequately patent. L3 - L4: The disk is normal in appearance. The central canal and foramina are adequately patent. L4 - L5: Mild disk desiccation loss of disk height. Broad-based central disk protrusion measuring 12 x 3 mm in transverse and AP dimensions respectively. Mild facet joint arthropathy with small facet joint effusions. The central canal and foramina are adequately patent. L5 - S1: Disk desiccation and preservation of disk height with a central vertical annular fissure and focal central disk bulge. No disk protrusion. The central canal and foramina are adequately patent. IMPRESSION: 1. Disk desiccation and loss of disk height at L4-L5 with small central disk protrusion measuring 12 x 3 mm in size without central canal or foraminal stenosis. 2. This desiccation without significant loss of disk height and L5-S1. Small central cortical annular fissure and central disk bulging. No central canal or foraminal stenosis. 3. Mild facet joint arthropathy L4-L5 L5-S1. SOCORRO DEALTORRE NP Jul 02, 2016 13:00
[2016-07-02] MEDS: IBUPROFEN 400 MG TAB PO SCH ×2 (13:37→17:35)
[2016-07-02 19:58] VITALS: BP 126/62; RESP 16
== END 2016-07-02 20:45 | disposition short-term general hospital (02) | DRG 552 ==
LOC: E/R 13:58 → PP2 19:41
PROVIDERS: ADMIT Student in an Organized Health Care Education/Training Program; ATTEND Student in an Organized Health Care Education/Training Program
DX: M48.06 Spinal stenosis, lumbar region (principal); Z68.42 Body mass index [BMI] 45.0-49.9, adult; M54.16 Radiculopathy, lumbar region; S39.012A Strain of muscle, fascia and tendon of lower back, initial encounter; M51.26 Other intervertebral disc displacement, lumbar region; E66.9 Obesity, unspecified; X50.0XXA Overexertion from strenuous movement or load, initial encounter; Z97.5 Presence of (intrauterine) contraceptive device; Z91.81 History of falling
CPT/HCPCS: 36415; 72131; 72148; 72192; 80048; 80053; 81003; 83690; 84703; 85025; 96374; 96375; 97116; 97162; 97530; J1650; J1885; J2270; J2405; J2930; J7030

== ENCOUNTER 2018-10-09 08:17 | Emergency (ER) | payer MEDICAID, OTHER ==
[~2018-10-09] VITALS: Wt 127.6 kg
[2018-10-09 08:21] VITALS: BP 113/65; PULSE 76; RESP 18
[2018-10-09] MEDS ORDERED: HYDROCODONE/APAP (5/325) TAB PO ONE (09:00)
[2018-10-09] MEDS ORDERED: IBUP800T48 PO (10:21)
[2018-10-09] MEDS ORDERED: CYCL10TA7 PO (10:22)
--- NOTE | 2018-10-09 10:25 | ERD ---
ER Documentation Chief Complaint Chief Complaint BACK PAIN , CHRONICK,RIGHT WRIST PAIN AFTER A FALL YESTERDAY HPI This is a 28-year-old female who has a history of chronic back pain and fusion in her lumbar spine approximately 2 years ago. She is complaining of pain in her lower back and in her right wrist after she had a mechanical trip and fall yesterday. She is ambulatory. No bowel or bladder continence. No numbness or tingling. Takes Motrin at home. ROS All systems reviewed and are negative except as per history of present illness. Medications Home Meds Active Scripts Cyclobenzaprine Hcl* (Cyclobenzaprine Hcl*) 10 Mg Tablet, 10 MG PO TID, #15 TAB Prov:ABRAHAM ALAS PA-C 10/09/18 Ibuprofen* (Motrin*) 800 Mg Tab, 800 MG PO Q6, #30 TAB Prov:ABRAHAM ALAS PA-C 10/09/18 Allergies Allergies: Coded Allergies: Penicillins (Verified Allergy, Mild, 06/29/16) PMhx/Soc History of Surgery: Yes (appendectomy) Anesthesia Reaction: No Hx Neurological Disorder: No Hx Respiratory Disorders: No Hx Cardiac Disorders: No Hx Psychiatric Problems: No Hx Miscellaneous Medical Probl: Yes (anxiety, appendectomy) Hx Alcohol Use: No Hx Substance Use: No Hx Tobacco Use: No Smoking Status: Never smoker FmHx Family History: No diabetes Physical Exam Vitals Vital Signs Date Temp Pulse Resp B/P (MAP) Pulse Ox O2 O2 Flow FiO2 Time Delivery Rate 10/09/18 98.1 76 18 113/65 99 08:21 (81) Physical Exam Const: No acute distress Head: Atraumatic Eyes: Normal Conjunctiva ENT: Normal External Ears, Nose and Mouth. Neck: Full range of motion. No meningismus. Resp: Clear to auscultation bilaterally Cardio: Regular rate and rhythm, no murmurs Back Exam: Compartments: Soft Motor: Normal flexion and extension of bilateral hip/knee/ankle/foot Sensation: Intact to light touch throughout Bones: No midline TTP Hand -right Skin: No laceration, or evidence of external trauma Compartments: Soft Sensation: Intact shoulder/pinky/middle finger/thumb web space Bones: Nontender Snuffbox: Nontender Joints: No effusion Wrist: Flex/Ext: Normal Uln/Radial deviation: Normal Pron/Supination Normal Finger: Flex/Ext: Normal Add/abd: Normal Thumb: Flex/Ext: Normal Opposition: Normal Thumbs up: Normal Results 24 hrs Laboratory Tests Test 10/09/18 08:57 POC Beta HCG, Qualitative NEGATIVE Current Medications Medications Dose Sig/Christopher Start Time Status Last (Trade) Ordered Route PRN Stop Time Admin Dose Reason Admin 1 tab ONCE ONCE 10/09/18 DC 10/09/18 Acetaminophen PO 09:00 10/09/18 08:56 / 09:01 Hydrocodone Bitart (Closplint ()) Procedures/MDM Patient has back pain which is chronic but got worse after she fell on it yesterday. Also wrist pain. X-rays are negative. Closplint given here and prescription for ibuprofen and Flexeril given. Patient counseled regarding my diagnostic impression and care plan. Prior to discharge all questions answered. Pt agrees with treatment plan and understands strict return precautions. Pt is instructed to follow up with primary care provider within 24-48 hours. Precautionary instructions provided including instructions to return to the ER if not improving or for any worsening or changing symptoms or concerns. Departure Diagnosis: Primary Impression: Wrist pain Additional Impression: Back pain Condition: Stable Patient Instructions: Back Pain (Acute Or Chronic), Wrist Sprain Additional Instructions: Call your primary care doctor TOMORROW for an appointment during the next 1-2 days.See the doctor sooner or return here if your condition worsens before your appointment time. ABRAHAM ALAS PA-C October 09, 2018 10:25
== END 2018-10-09 10:28 | disposition home or self-care (01) ==
LOC: FTE 08:17
DX: M25.531 Pain in right wrist (principal); M54.5 Low back pain
CPT/HCPCS: 72100; 73110; 81025; Z7502; Z7610

== ENCOUNTER 2018-12-13 13:16 | Emergency (ER) | payer OTHER ==
[~2018-12-13] VITALS: Wt 100.0 kg
[~2018-12-13 13:16] MED LIST changes: +CYCL10TA7 PO; -HYDR-3498 PO; -IBUP-1542 PO; +IBUP800T48 PO; -NAPR-260 PO; -PREN1TAB67 PO; -PRO20 PO; -URSO300C3 PO
[2018-12-13] MEDS ORDERED: SOD CHLORIDE 0.9% 1,000 ML IV STA (13:43)
[2018-12-13] MEDS ORDERED: ONDANSETRON 4 MG INJ IV STA (13:43)
[2018-12-13] MEDS ORDERED: MECLIZINE 12.5 MG TAB PO ONE (14:00)
[2018-12-13] MEDS ORDERED: MECL12.574 PO (14:44)
[2018-12-13] MEDS ORDERED: ONDA4TAB14 PO (14:44)
[2018-12-13 15:02] VITALS: BP 119/73; PULSE 80; RESP 18
--- NOTE | 2018-12-13 18:26 | ERD ---
ER Documentation Chief Complaint Chief Complaint NAUSEA,DIZZINESS,VOMITING X 3 DAYS HPI This is a 28-year-old female who presents to the ED complaining of sudden onset dizziness with nausea and vomiting since yesterday. Patient describes the dizziness as a room spinning sensation, and worse with movement of her head to the right. Dizziness lasts for a few seconds before spontaneously improves. She also reports one episode of nonbilious, nonbloody emesis. Denies any head trauma. Denies any recent URI. Denies any ear ringing, tinnitus or ear fullness. Denies chest pain or shortness of breath. No other symptoms. ROS All systems reviewed and are negative except as per history of present illness. Medications Home Meds Active Scripts Meclizine Hcl* (Antivert*) 12.5 Mg Tab, 12.5 MG PO Q6H PRN for DIZZINESS, #20 TAB Prov:WES LOPEZ PA-C 12/13/18 Ondansetron (Ondansetron Odt) 4 Mg Tab.rapdis, 4 MG PO Q6H PRN for NAUSEA AND/OR VOMITING, #10 TAB Prov:WES LOPEZ PA-C 12/13/18 Cyclobenzaprine Hcl* (Cyclobenzaprine Hcl*) 10 Mg Tablet, 10 MG PO TID, #15 TAB Prov:ABRAHAM ALAS PA-C 10/09/18 Ibuprofen* (Motrin*) 800 Mg Tab, 800 MG PO Q6, #30 TAB Prov:ABRAHAM ALAS PA-C 10/09/18 Allergies Allergies: Coded Allergies: Penicillins (Verified Allergy, Mild, 06/29/16) PMhx/Soc History of Surgery: Yes (appendectomy) Anesthesia Reaction: No Hx Neurological Disorder: No Hx Respiratory Disorders: No Hx Cardiac Disorders: No Hx Psychiatric Problems: No Hx Miscellaneous Medical Probl: Yes (anxiety, appendectomy) Hx Alcohol Use: No Hx Substance Use: No Hx Tobacco Use: No Smoking Status: Never smoker FmHx Family History: No diabetes Physical Exam Vitals Vital Signs Date Temp Pulse Resp B/P (MAP) Pulse Ox O2 O2 Flow FiO2 Time Delivery Rate 12/13/18 80 18 119/73 99 Room Air 15:02 (88) 12/13/18 98.1 69 18 127/60 99 13:19 (82) Physical Exam Const: No acute distress Head: Atraumatic Eyes: Normal Conjunctiva. EOMI. PERRL. + Fatigable horizontal nystagmus, symptoms provoked when turning head to the right. Bilateral TMs nonerythematous, no TM perforation. External auditory canal normal. ENT: Normal External Ears, Nose and Mouth. Neck: Full range of motion. No meningismus. Resp: Clear to auscultation bilaterally Cardio: Regular rate and rhythm, no murmurs Abd: Soft, non tender, non distended. Normal bowel sounds Skin: No petechiae or rashes Back: No midline or flank tenderness Ext: No cyanosis, or edema Neuro: M/S: Alert and oriented Face: EOMI, face and pharynx with normal sensation and function Motor: Normal strength throughout Sensation: Normal sensation throughout Speech: Normal Cerebel: Normal coordination Normal gait Psych: Normal Mood and Affect Result Diagram: 12/13/18 1348 12/13/18 1348 Results 24 hrs Laboratory Tests Test 12/13/18 13:47 12/13/18 13:48 Urine Test NEGATIVE White Blood Count 8.2 10^3/ul Red Blood Count 4.27 10^6/ul Hemoglobin 12.6 g/dl Hematocrit 39.0 % Mean Corpuscular Volume 91.3 fl Mean Corpuscular Hemoglobin 29.5 pg Mean Corpuscular Hemoglobin Concent 32.3 g/dl Red Cell Distribution Width 12.9 % Platelet Count 233 10^3/UL Mean Platelet Volume 10.4 fl Immature Granulocytes % 0.200 % Neutrophils % 55.7 % Lymphocytes % 34.3 % Monocytes % 8.1 % Eosinophils % 1.5 % Basophils % 0.2 % Nucleated Red Blood Cells % 0.0 /100WBC Immature Granulocytes # 0.020 10^3/ul Neutrophils # 4.6 10^3/ul Lymphocytes # 2.8 10^3/ul Monocytes # 0.7 10^3/ul Eosinophils # 0.1 10^3/ul Basophils # 0.0 10^3/ul Nucleated Red Blood Cells # 0.0 10^3/ul Urine Color STRAW Urine Clarity SLIGHTLY CLOUDY Urine pH 6.0 Urine Specific [place] 1.009 Urine Ketones NEGATIVE mg/dL Urine Nitrite NEGATIVE mg/dL Urine Bilirubin NEGATIVE mg/dL Urine Urobilinogen NEGATIVE mg/dL Urine Leukocyte Esterase NEGATIVE Jose Miguel/ul Urine Microscopic RBC 1 /HPF Urine Microscopic WBC 1 /HPF Urine Squamous Epithelial Cells FEW /HPF Urine Bacteria FEW /HPF Urine Hemoglobin NEGATIVE mg/dL Urine Glucose NEGATIVE mg/dL Urine Total Protein NEGATIVE mg/dl Sodium Level 141 mmol/L Potassium Level 4.2 mmol/L Chloride Level 106 mmol/L Carbon Dioxide Level 29 mmol/L Anion Gap 6 Blood Urea Nitrogen 11 mg/dl Creatinine 0.61 mg/dl Est Glomerular Filtrat Rate mL/min > 60 mL/min Glucose Level 90 mg/dl Calcium Level 9.2 mg/dl Current Medications Medications Dose Sig/Christopher Start Time Status Last (Trade) Ordered Route PRN Stop Time Admin Dose Reason Admin Sodium 1,000 ml @ Q1H STAT 12/13/18 DC 12/13/18 Chloride 1,000 mls/hr IV 13:43 12/13/18 13:54 14:42 Ondansetron 4 mg ONCE STAT 12/13/18 DC 12/13/18 HCl (Zofran IV 13:43 12/13/18 13:54 Inj) 13:45 Meclizine 25 mg ONCE ONCE 12/13/18 DC 12/13/18 HCl PO 14:00 12/13/18 13:54 (Antivert) 14:01 Procedures/MDM LABS & DIAGNOSTIC IMAGING: CBC: no e/o of systemic infection or severe anemia BMP: no e/o severe acidosis, alkalosis, renal failure, diabetic ketoacidosis Upreg: neg ED COURSE: The patient was given IV fluids, Zofran, meclizine The medication was well tolerated and the patient had market improvement in symptoms. The patient remained stable throughout ED course. MEDICAL DECISION MAKING: This is a 28-year-old female presents to the ED complaining of vertigo with vomiting. Her lab work is unremarkable. No evidence of infection or dehydration. She has no focal neurologic deficits on physical exam. ENT exam is unremarkable. Clinical picture is most consistent with peripheral cause of her vertigo. I have low suspicion for No evidence of meningitis, intracranial bleed, seizure, stroke, or elevated intracranial pressure. Patient felt better after fluids, Zofran and meclizine. Patient will be discharged home with same. Recommended PCP follow-up 1 week, strict return precautions were discussed. PRESCRIPTIONS: Zofran, meclizine SPECIALIST FOLLOW UP RECOMMENDED: None Patient has been advised to follow up with primary care in 1-2 days. Departure Diagnosis: Primary Impression: Vertigo Condition: Stable Patient Instructions: Vertigo, Unspecified Additional Instructions: Take the medications as needed. If her symptoms persist longer than 1 month, see your primary care doctor as you may need referral to an ENT specialist. Otherwise return here for any worsening vomiting, headache, blurry vision or any other concerns. WES LOPEZ PA-C Dec 13, 2018 18:26
== END 2018-12-13 15:02 | disposition home or self-care (01) ==
LOC: FTE 13:16
DX: R42 Dizziness and giddiness (principal); R11.2 Nausea with vomiting, unspecified
CPT/HCPCS: 36415; 80048; 81001; 84703; 85025; 96374; J2405; J7030; Z7502; Z7610; 81003

== ENCOUNTER 2018-12-25 11:57 | Emergency (ER) | payer OTHER ==
[~2018-12-25] VITALS: Ht 157.5 cm; Wt 124.4 kg
[~2018-12-25 11:57] MED LIST changes: +MECL12.574 PO; +ONDA4TAB14 PO
[2018-12-25 12:01] VITALS: BP 140/71; PULSE 87; RESP 20; Ht 157.5 cm; Wt 124.4 kg
[2018-12-25] MEDS ORDERED: IBUPROFEN 800 MG TAB PO ONE (13:30)
--- NOTE | 2018-12-25 13:53 | ERD ---
ER Documentation Chief Complaint Chief Complaint Right foot pain x1 day. Was playing soccer yesterday HPI This is a 28-year-old female with no previous medical problems who presents to the emergency room for evaluation of right second toe pain for 1 day. The patient states that she was playing soccer yesterday and kicked a soccer ball and felt pain in the right toe. She states that she noted some swelling this morning and put some ice on it which did help. She states that afterwards she was trying to walk and felt pain and came to the ER for evaluation. The patient denies any other trauma, denies any numbness or tingling in the foot and came to the ER for evaluation. ROS All systems reviewed and are negative except as per history of present illness. Medications Home Meds Active Scripts Meclizine Hcl* (Antivert*) 12.5 Mg Tab, 12.5 MG PO Q6H PRN for DIZZINESS, #20 TAB Prov:WES LOPEZ PA-C 12/13/18 Ondansetron (Ondansetron Odt) 4 Mg Tab.rapdis, 4 MG PO Q6H PRN for NAUSEA AND/OR VOMITING, #10 TAB Prov:WES LOPEZ PA-C 12/13/18 Cyclobenzaprine Hcl* (Cyclobenzaprine Hcl*) 10 Mg Tablet, 10 MG PO TID, #15 TAB Prov:ABRAHAM ALAS PA-C 10/09/18 Ibuprofen* (Motrin*) 800 Mg Tab, 800 MG PO Q6, #30 TAB Prov:ABRAHAM ALAS PA-C 10/09/18 Allergies Allergies: Coded Allergies: Penicillins (Verified Allergy, Mild, 06/29/16) PMhx/Soc History of Surgery: Yes (appendectomy) Anesthesia Reaction: No Hx Neurological Disorder: No Hx Respiratory Disorders: No Hx Cardiac Disorders: No Hx Psychiatric Problems: No Hx Miscellaneous Medical Probl: Yes (anxiety, appendectomy) Hx Alcohol Use: No Hx Substance Use: No Hx Tobacco Use: No Smoking Status: Never smoker Physical Exam Vitals Vital Signs Date Temp Pulse Resp B/P (MAP) Pulse Ox O2 O2 Flow FiO2 Time Delivery Rate 12/25/18 98.9 87 20 140/71 97 12:01 (94) Physical Exam Const: No acute distress Head: Atraumatic Eyes: Normal Conjunctiva ENT: Normal External Ears, Nose and Mouth. Neck: Full range of motion. No meningismus. Resp: Clear to auscultation bilaterally Cardio: Regular rate and rhythm, no murmurs Abd: Soft, non tender, non distended. Normal bowel sounds Skin: No petechiae or rashes Back: No midline or flank tenderness Ext: To palpation of the second toe, no deformity, no ecchymosis, pulses intact and symmetric bilaterally, no cyanosis, or edema Neur: Awake and alert Psych: Normal Mood and Affect Results 24 hrs Current Medications Medications Dose Sig/Christopher Start Time Status Last (Trade) Ordered Route PRN Stop Time Admin Dose Reason Admin Ibuprofen 800 mg ONCE ONCE 12/25/18 DC 12/25/18 (Motrin) PO 13:30 13:49 12/25/18 13:31 Procedures/MDM X-ray Foot 3V Interpreted by me: Bones: [No fracture] Joints: [No dislocation] Foreign body: [None] This 28-year-old female presents to the ER for evaluation of pain in the second toe after kicking a soccer ball. On my exam there is no deformity. X-ray does not reveal any fracture. The patient was given Motrin, is likely suffering from a toe contusion. She will be discharged at this time with a prescription for Motrin and advised to follow-up with her PCP. Departure Diagnosis: Primary Impression: Toe contusion Condition: MICHELLE Schafer DO Dec 25, 2018 13:53
[2018-12-25] MEDS ORDERED: ACET325T33 PO (13:54)
== END 2018-12-25 15:06 | disposition home or self-care (01) ==
LOC: E/R 11:57
DX: S90.221A Contusion of right lesser toe(s) with damage to nail, initial encounter (principal); W21.89XA Striking against or struck by other sports equipment, initial encounter; Y92.322 Soccer field as the place of occurrence of the external cause
CPT/HCPCS: 73630; Z7502; Z7610